=== PATIENT | female | born 1995 | race Caucasian/White ===

== ENCOUNTER 2021-04-26 16:07 | Emergency (ER) | payer BC ==
[~2021-04-26] VITALS: Ht 149.9 cm; Wt 46.4 kg
[2021-04-26 16:33] LABS: BASOPHILS # (AUTO) 0.1 (0.0-0.1); BASOPHILS % 0.6 % (0.0-1.0); EOSINOPHILS # (AUTO) 0.8 (0.0-0.4); EOSINOPHILS % 8.8 % (0.0-6.0); HEMOGLOBIN 12.4 g/dL (12.0-16.0); LYMPHOCYTES # (AUTO) 1.8 (1.0-3.2); LYMPHOCYTES % 19.9 % (18.0-39.1); MEAN CORPUSCULAR HEMOGLOBIN 29.7 pg (28-32); MEAN CORPUSCULAR HGB CONC 33.5 g/dL (31-35); MEAN CORPUSCULAR VOLUME 88.5 fL (81-99); MONOCYTES # (AUTO) 0.9 (0.2-0.8); MONOCYTES % 9.8 % (4.4-11.3); NEUTROPHILS # (AUTO) 5.4 (2.1-6.9); NEUTROPHILS % 60.6 % (38.7-80.0); PLATELET COUNT 252 x10e3/uL (140-360); RED BLOOD COUNT 4.18 x10e6/uL (3.6-5.1)
[2021-04-26 16:41] LABS: CLARITY,URINE SL CLOUDY (CLEAR); COLOR,URINE STRAW (YELLOW); KETONES,URINE NEGATIVE (NEGATIVE); LEUKOCYTE ESTERASE ,URINE NEGATIVE (NEGATIVE); NITRITE,URINE NEGATIVE (NEGATIVE); PROTEIN,URINE DIPSTICK 1+ (NEGATIVE); URINE UROBILINOGEN 0.2 mg/dL (0.2 - 1)
[2021-04-26 16:44] LABS: ALBUMIN/GLOBULIN RATIO 1.3 (0.8-2.0); ANION GAP 12.7 mmol/L (8-16); CREATININE, SERUM 0.85 mg/dL (0.57-1.11); POTASSIUM 3.7 mmol/L (3.5-5.1)
[2021-04-26 16:47] LABS: BACTERIA,URINE MANY /HPF; EPITHELIAL CELLS,URINE MANY /LPF
[2021-04-26] MEDS ORDERED: KETOROLAC TROMETHAMINE 30 MG/ML VIAL IV NR (19:00)
[2021-04-26] MEDS ORDERED: IOPAMIDOL 370 MG/ML 200 ML INFUS..BTL INJ ONE (19:10)
[2021-04-26] MEDS ORDERED: SODIUM CHLORIDE 0.9% 100 ML ONE (19:10)
[2021-04-26 20:16] VITALS: BP 109/68
== END 2021-04-26 20:27 | disposition home or self-care (01) ==
LOC: ER 18:58
DX: K52.9 Noninfective gastroenteritis and colitis, unspecified (principal); K92.1 Melena
CPT/HCPCS: 36415; 74174; 80053; 81001; 81025; 85025; 99284; J1885; J7050; Q9967

== ENCOUNTER 2021-05-20 17:24 | Emergency (ER) | payer BC ==
[~2021-05-20] VITALS: Ht 149.9 cm; Wt 48.1 kg
[~2021-05-20 17:24] MED LIST: ONDANSETRON ODT8 MG SL; WOMEN MULTIVIT1 EAC1 PO
== END 2021-05-20 17:41 | disposition home or self-care (01) ==
LOC: ER 17:37
DX: R07.9 Chest pain, unspecified (principal); T44.3X5A Adverse effect of other parasympatholytics [anticholinergics and antimuscarinics] and spasmolytics, initial encounter
CPT/HCPCS: 93005; 99283

== ENCOUNTER 2022-04-14 15:36 | Observation (INO) | payer BC ==
[2022-04-14] MEDS ORDERED: BENZONATATE100 MG PO (16:04)
[2022-04-14] MEDS ORDERED: ULTRAM50 MG PO (16:04)
[2022-04-14] MEDS ORDERED: ONDANSETRON ODT8 MG PO (16:04)
[2022-04-14] MEDS ORDERED: DICYCLOMINE HCL20 MG PO (16:04)
[2022-04-14] MEDS ORDERED: LIALDA1.2 GM PO (16:04)
[2022-04-14] MEDS ORDERED: METHYLPREDNISOLO4 M1 (16:04)
[2022-04-14] MEDS ORDERED: BISACODYL 5 MG TAB EC PO ONE ×2 (17:35→20:00)
[2022-04-14] MEDS ORDERED: ONDANSETRON HCL INJ 2MG/ML 2ML 2 MG/ML VIAL IV PRN (18:00)
[2022-04-14] MEDS ORDERED: HYDRALAZINE HCL 20 MG/ML VIAL IV PRN (18:00)
[2022-04-14] MEDS ORDERED: ACETAMINOPHEN 325 MG TAB PO PRN (18:00)
[2022-04-14] MEDS ORDERED: KETOROLAC TROMETHAMINE 30 MG/ML VIAL IV PRN (18:00)
[2022-04-14 19:57] VITALS: BP 101/65
[2022-04-14 20:00] VITALS: BP 101/65
[2022-04-14] MEDS: SODIUM CHLORIDE 0.9% 1000ML 1,000 ML IV SCH (21:54)
[2022-04-14] MEDS ORDERED: CITRATE OF MAGNESIA 300ML BOTTLE PO ONE (23:00)
[2022-04-15] VITALS (8 sets, daily range): BP systolic 106–122; BP diastolic 60–75
[2022-04-15] MEDS ORDERED: BISACODYL 5 MG TAB EC PO ONE (05:30)
[2022-04-15 06:15] LABS: BASOPHILS % 0.1 % (0.0-1.0); EOSINOPHILS % 0.1 % (0.0-6.0); HEMATOCRIT 30.1 % (34.2-44.1); HEMOGLOBIN 9.1 g/dL (12.0-16.0); LYMPHOCYTES # (AUTO) 1.5 (1.0-3.2); LYMPHOCYTES % 12.4 % (18.0-39.1); MEAN CORPUSCULAR HEMOGLOBIN 26.7 pg (28-32); MEAN CORPUSCULAR HGB CONC 30.2 g/dL (31-35); MEAN CORPUSCULAR VOLUME 88.3 fL (81-99); MONOCYTES # (AUTO) 0.7 (0.2-0.8); MONOCYTES % 5.8 % (4.4-11.3); NEUTROPHILS # (AUTO) 9.8 (2.1-6.9); NEUTROPHILS % 80.9 % (38.7-80.0); PLATELET COUNT 286 x10e3/uL (140-360); RED BLOOD COUNT 3.41 x10e6/uL (3.6-5.1); RED CELL DISTRIBUTION WIDTH 12.7 % (11.7-14.4)
[2022-04-15 06:17] LABS: INR 0.98; PROTHROMBIN TIME 13.9 seconds (11.9-14.5)
[2022-04-15 06:33] LABS: ALBUMIN 3.2 g/dL (3.5-5.0); ANION GAP 14.3 mmol/L (8-16); CREATININE, SERUM 0.67 mg/dL (0.57-1.11); POTASSIUM 4.3 mmol/L (3.5-5.1)
[2022-04-15] MEDS: SODIUM CHLORIDE 0.9% 1000ML 1,000 ML IV SCH ×2 (06:44→14:32)
[2022-04-15 06:47] LABS: FERRITIN 7.36 ng/mL (4.63-204.00)
[2022-04-15] MEDS ORDERED: CITRATE OF MAGNESIA 300ML BOTTLE PO ONE (07:00)
[2022-04-15] MEDS ORDERED: METHYLPREDNISOLONE SOD SUCC 125 MG/2ML VIAL IV NR ×2 (09:45→12:00)
[2022-04-15] MEDS: METRONIDAZOLE 500MG/NS 100ML 100 ML IV SCH ×2 (12:01→14:32)
[2022-04-15] MEDS ORDERED: METHYLPREDNISOLONE SOD SUCC 125 MG/2ML VIAL ONE (14:26)
[2022-04-15 14:30] LABS: WBC,FECAL (FECAL LACTOFERRIN) POSITIVE (NEGATIVE)
[2022-04-16 13:47] LABS: C DIFFICILE TOXIN A&B AMP PROB NEGATIVE (NEGATIVE)
== END 2022-04-15 17:16 | disposition home or self-care (01) ==
LOC: INTOOBSV 15:36 → MED/SURG 15:36
PROVIDERS: ADMIT Internal Medicine; ATTEND Internal Medicine
DX: K51.911 Ulcerative colitis, unspecified with rectal bleeding (principal); D62 Acute posthemorrhagic anemia; K62.89 Other specified diseases of anus and rectum; K64.8 Other hemorrhoids; Z72.0 Tobacco use; Z72.89 Other problems related to lifestyle; Z20.822 Contact with and (suspected) exposure to COVID-19
CPT/HCPCS: 36415; 45380; 80053; 82607; 82728; 82746; 83540; 83630; 83993; 84466; 85025; 85045; 85610; 86141; 87045; 87177; 87328; 87493; 88305; C9113; G0378 ×2; J0696; J2405; J2930; J7030 ×2; U0002